=== PATIENT | female | born 1980 | race Caucasian/White ===

== ENCOUNTER 2016-12-28 08:07 | Emergency (ER) | payer BC, MEDICAID ==
[~2016-12-28] VITALS: Ht 162.6 cm; Wt 79.4 kg
[2016-12-28] MEDS ORDERED: ACETAMINOPHEN 325 MG TABLET PO ONE (08:15)
[2016-12-28 08:18] VITALS: BP_SYST 145
--- NOTE | 2016-12-28 08:18 | NUR ---
Patient to ER bed 7 to gown for evaluation. Side rails up. Received report from Niru GORDILLO.
--- NOTE | 2016-12-28 08:20 | NUR ---
ER Dr. Peralta at bedside examining patient.
--- NOTE | 2016-12-28 08:25 | NUR ---
Pt AAOX4, able to verbalize needs. Pt states she is 10 weeks and has had vaginal bleeding since yesterday starting with spotting and then heavier bleeding last night. Pt states no pain currently. No other complaints or injuries per pt or noted.
--- NOTE | 2016-12-28 08:28 | NUR ---
Pt ambulate to bathroom with steady gait and provided urine sample. Pt states she did not notice any bleeding when wiping.
--- NOTE | 2016-12-28 08:35 | NUR ---
Jimmie sexton in [facility] - 12/28/16 at 0920 by ARRONNDELMY Pt off unit to ultrasound.
[2016-12-28 08:42] LABS: BASOPHILS # (AUTO) 0.1 K/uL (0.0-0.2); BASOPHILS % (AUTO) 0.8 % (0.0-2.0); EOSINOPHILS # (AUTO) 0.2 K/uL (0.0-0.4); EOSINOPHILS % (AUTO) 2.8 % (0.0-4.0); HEMATOCRIT 39.9 % (36-48); HEMOGLOBIN 13.1 g/dL (12.0-16.0); LYMPHOCYTES # (AUTO) 1.8 K/uL (1.0-5.5); MEAN CORPUSCULAR HEMOGLOBIN 28 pg (27-31); MEAN CORPUSCULAR HGB CONC 33 % (32-36); MEAN CORPUSCULAR VOLUME 85 fL (79.0-98.0); MONOCYTES # (AUTO) 0.4 K/uL (0.0-1.0); MONOCYTES % (AUTO) 5.7 % (1.7-9.3); NEUTROPHILS # (AUTO) 3.8 K/uL (1.8-7.7); NEUTROPHILS % (AUTO) 62.7 % (40.0-70.0); RED BLOOD CELL COUNT(AUTO) 4.72 MIL/uL (4.2-6.2); RED CELL DISTRIBUTION WIDTH 12.8 % (9.0-15.0); WHITE BLOOD COUNT (AUTO) 6.3 K/uL (4.8-10.8)
--- NOTE | 2016-12-28 08:45 | NUR ---
Pt off unit to ultrasound.
[2016-12-28 08:48] LABS: CALCIUM 8.9 mg/dL (8.4-11.0); CREATININE 0.51 mg/dL (0.55-1.30); POTASSIUM 3.6 mmol/L (3.5-5.1)
[2016-12-28 08:49] LABS: BILIRUBIN,URINE NEGATIVE (NEGATIVE); BLOOD, URINE 3+ (NEGATIVE); CLARITY/URINE CLEAR (CLEAR); COLOR,URINE YELLOW (YELLOW); GLUCOSE,URINE NEGATIVE (NEGATIVE); KETONES,URINE NEGATIVE (NEGATIVE); LEUKOCYTE ESTERASE ,URINE NEGATIVE (NEGATIVE); NITRITE, URINE NEGATIVE (NEGATIVE); PROTEIN URINE NEGATIVE (NEGATIVE); UROBILINOGEN,URINE 0.2 (0.2-1.0)
[2016-12-28 08:51] LABS: INR 0.9 (0.8-1.2); PROTHROMBIN TIME 10.3 SECS (9.5-12.5)
[2016-12-28 08:59] LABS: PLATELET COUNT (AUTO) 156 K/uL (130-430)
[2016-12-28 09:02] LABS: BACTERIA,URINE FEW /HPF (None Seen); RBC,URINE 0-3 /HPF (0-3); WBC,URINE 0-3 /HPF (0-3)
[2016-12-28 09:03] LABS: MUCUS,URINE None Seen /LPF (None Seen)
--- NOTE | 2016-12-28 09:19 | NUR ---
Pt return to unit from ultrasound. Tolerated well.
[2016-12-28 10:39] VITALS: BP_SYST 145
--- NOTE | 2016-12-28 10:40 | NUR ---
Patient given written and verbal discharge instructions and verbalizes understanding. ER MD discussed with patient the results and treatment provided. Patient in stable condition. ID arm band removed. Patient verbalized, "I want to go home now. The doctor spoke to me. I want to go home." Then she signed discharge paper work. No Rx Given. Patient educated on pain management and to follow up with PMD. Pain Scale 0/10. Opportunity for questions provided and answered.
== END 2016-12-28 10:40 | disposition home or self-care (01) ==
LOC: SED 08:07
DX: O02.1 Missed abortion (principal); I10 Essential (primary) hypertension; Z3A.10 10 weeks gestation of pregnancy
CPT/HCPCS: 36415; 76817; 80048; 81000-TC; 81025; 84702-TC; 85025; 85610-TC; 85730-TC; 86900; 86901; 99285